=== PATIENT | male | born 1935 | race Caucasian/White ===

== ENCOUNTER 2016-09-02 12:50 | Inpatient (IN) | payer OTHER ==
[~2016-09-02] VITALS: Ht 172.7 cm; Wt 79.2 kg
[~2016-09-02 12:50] MED LIST: ACTOS15 MG PO; ARNUITY ELLIP100 MCG IH; ASPIRIN81 M2 PO; ATIVAN0.5 MG PO; ATORVASTATIN TAB 40M PO; BISACODYL5 MG PO; BUSPAR15 MG PO; CALTRATE 6001 TABLE1 PO; CENTRUM SILVER1 EAC3 PO; DONEPEZIL HCL10 MG PO; ESCITALOPRAM OX10 MG PO; FOLIC ACID1 MG PO; GINKGO BILOBA60 M2 PO; GLUCOVANCE 51 TABLET PO; LEVOFLOXACIN500 MG PO; LIPITOR80 MG PO; LISINOPRIL40 MG; LISINOPRIL40 MG PO; MAG-OXIDE400 MG PO; METFORMIN HCL500 M1 PO; NASACORT AQ16.5 GM BOTH NARES; NOVOLOG PE100 UNITS/ SC; OMEPRAZOLE20 MG PO; PREVACID30 MG PO; PROVENTIL,2.5 MG/0.5 AEROSOL; SEROQUEL12.5 MG PO; SINGULAIR10 MG PO; SUPER B COMPLE150 MG PO; TEGRETOL100 MG PO; TEGRETOL200 MG PO; VITAMIN B-1100 MG PO; VITAMIN D250000 UNIT PO; ZESTRIL40 MG PO
[2016-09-02 13:40] LABS: EOSINOPHIL (%) 0.1 % (0-5); IMMATURE GRANULOCYTE (%) 0.3 % (0.0-0.7); IMMATURE GRANULOCYTE COUNT 0.3 K/uL; LYMPHOCYTE COUNT 1.5 K/uL (1.0-2.8); MCH 32.8 PG (29.0-34.0); MCHC 33.8 G/DL (30.0-36.0); MCV 96.9 FL (86-99); MEAN PLAT.VOLUME 10.1 uM^3 (9.0-12.4); MONOCYTE (%) 7.3 % (3-12); MONOCYTE COUNT 0.8 K/uL (0-0.8); NEUTROPHIL COUNT 8.5 K/uL (1.8-6.4); PLATELET COUNT 133 K/uL (156-360); RBC DIS.WIDTH-CV 13.7 % (11.8-14.6); RBC DIS.WIDTH-SD 46.4 % (39-53); RED BLOOD COUNT 3.51 M/uL (4.00-5.50); WHITE BLOOD COUNT 10.9 K/uL (4.1-10.2)
[2016-09-02 14:02] LABS: INFLUENZA A VIRAL ANTIGEN NEGATIVE; INFLUENZA B VIRAL ANTIGEN NEGATIVE
[2016-09-02 14:05] LABS: CHLORIDE 111 mEq/L (99-109); POTASSIUM 3.9 mEq/L (3.7-5.4); SODIUM 147 mEq/L (136-147)
[2016-09-02 14:07] LABS: GLUCOSE 54 mg/dL (70-99)
[2016-09-02 14:08] LABS: ANION GAP 13 MEQ/L (2-14)
[2016-09-02 14:09] LABS: TOTAL BILIRUBIN 0.2 mg/dL (0.0-1.0)
[2016-09-02 14:11] LABS: ALKALINE PHOSPHATASE 41 IU/L (3-129); GFR ESTIMATE (CALCULATED) 32 mL/min/
[2016-09-02 14:12] LABS: UREA NITROGEN (BUN) 38 mg/dL (9-23)
[2016-09-02 17:18] LABS: ADD MIUA? YES; BILIRUBIN NEGATIVE; BLOOD MODERATE; COLOR YELLOW ((YELLOW)); GLUCOSE (STRIP) NEGATIVE; KETONES NEGATIVE; LEUKOCYTES NEGATIVE; NITRITE NEGATIVE; PROTEIN (STRIP) 100; SPECIFIC GRAVITY 1.024 (1.000-1.030); UROBILINOGEN 0.2 MG/DL (0.2-1.0)
[2016-09-02 17:19] LABS: BACTERIA RARE /HPF; CASTS NONE SEEN /LPF; CRYSTALS NONE SEEN; EPITHELIAL CELLS NONE SEEN /HPF; MUCUS TRACE /LPF; RED BLOOD CELLS 0-5 /HPF (0-5); UCUL ADDED? NO; WHITE BLOOD CELLS 0-5 /HPF (0-5)
[2016-09-02] MEDS ORDERED: FLONASE16 G1 BOTH NARES (18:04)
[2016-09-02] MEDS ORDERED: LO-DOSE ASPIRIN81 M2 PO (18:04)
[2016-09-02] MEDS ORDERED: OMEPRAZOLE20 MG PO (18:04)
[2016-09-02] MEDS ORDERED: CALCIUM 600 +1 EAC2 PO (18:04)
[2016-09-02] MEDS ORDERED: NOVOLOG 10100 UNITS/ SC (18:05)
[2016-09-02] MEDS ORDERED: LEVEMIR FL100 UNIT/1 SC ×2 (18:05→18:06)
[2016-09-02] MEDS ORDERED: FLOMAX0.4 MG PO (18:06)
[2016-09-02] MEDS ORDERED: VITAMIN B-12500 MC5 SL (18:07)
[2016-09-02] MEDS ORDERED: DEPAKOTE SPRIN125 MG PO (18:07)
[2016-09-02] MEDS ORDERED: SEROQUEL12.5 MG PO (18:07)
[2016-09-02] MEDS ORDERED: ROCEPHIN1000 MG IM (18:07)
[2016-09-02] MEDS ORDERED: DULCOLAX10 MG PR (18:08)
[2016-09-02] MEDS ORDERED: PROVENTIL,2.5 MG/3 M IH (18:08)
[2016-09-02] MEDS ORDERED: FLEET ENEMA-AD118 ML PR (18:08)
[2016-09-02] MEDS ORDERED: TYLENOL REGULA325 MG PO (18:09)
[2016-09-02] MEDS ORDERED: PHILLIPS'400 MG/5 M PO (18:09)
[2016-09-02] MEDS ORDERED: ROBITUSSIN100 MG/5 M PO (18:09)
[2016-09-02] MEDS ORDERED: TYLENOL650 MG PR (18:10)
[2016-09-02] MEDS ORDERED: VASELINE454 GM BOTH NARES (18:11)
[2016-09-02 19:00] VITALS: BP 152/65
[2016-09-02 22:59] LABS: POINT-OF-CARE METER ID UU14162513
[2016-09-02 23:46] VITALS: BP 130/72
[2016-09-03 04:12] LABS: POINT-OF-CARE METER ID UU14162513
[2016-09-03 05:05] VITALS: BP 145/70
[2016-09-03 07:28] LABS: HEMATOCRIT 27.9 % (38.0-50.0); MCH 32.6 PG (29.0-34.0); MCHC 34.1 G/DL (30.0-36.0); MCV 95.9 FL (86-99); MEAN PLAT.VOLUME 10.4 uM^3 (9.0-12.4); PLATELET COUNT 120 K/uL (156-360); RBC DIS.WIDTH-SD 49.4 % (39-53); RED BLOOD COUNT 2.91 M/uL (4.00-5.50); WHITE BLOOD COUNT 8.4 K/uL (4.1-10.2)
[2016-09-03 07:52] LABS: ANION GAP 12 MEQ/L (2-14); CHLORIDE 108 MEQ/L (99-109); GFR ESTIMATE (CALCULATED) 38 mL/min/; POTASSIUM 3.6 MEQ/L (3.7-5.4); SAMPLE HEMOLYSIS CHECK 0; SAMPLE ICTERIC CHECK 0; SAMPLE LIPEMIA CHECK 0; SODIUM 140 MEQ/L (136-147); UREA NITROGEN (BUN) 39 mg/dL (9-23)
[2016-09-03 07:59] LABS: GLUCOSE 142 mg/dL (70-99)
[2016-09-03 08:45] VITALS: BP 137/60
[2016-09-03 10:58] LABS: POINT-OF-CARE METER ID UU13113700
[2016-09-03 10:58] LABS: POINT-OF-CARE METER ID UU13113700
[2016-09-03 11:31] LABS: ALKALINE PHOSPHATASE 32 IU/L (3-129); MAGNESIUM 1.5 mg/dl (1.3-2.7); TOTAL BILIRUBIN 0.2 MG/DL (0.0-1.0)
[2016-09-03 11:32] VITALS: BP 135/87
[2016-09-03 15:53] VITALS: BP 112/69
[2016-09-03 17:41] LABS: POINT-OF-CARE METER ID UU14162513
[2016-09-03 20:00] VITALS: BP 124/80
[2016-09-03 20:37] VITALS: BP 141/66
[2016-09-04] VITALS (7 sets, daily range): BP systolic 112–173; BP diastolic 58–76
[2016-09-04 09:02] LABS: POINT-OF-CARE METER ID UU13113700
[2016-09-04 10:39] LABS: HEMATOCRIT 29.2 % (38.0-50.0); MCH 32.1 PG (29.0-34.0); MCHC 33.2 G/DL (30.0-36.0); MCV 96.7 FL (86-99); MEAN PLAT.VOLUME 10.8 uM^3 (9.0-12.4); PLATELET COUNT 117 K/uL (156-360); RBC DIS.WIDTH-CV 14.2 % (11.8-14.6); RBC DIS.WIDTH-SD 50.5 % (39-53); RED BLOOD COUNT 3.02 M/uL (4.00-5.50); WHITE BLOOD COUNT 5.9 K/uL (4.1-10.2)
[2016-09-04 11:13] LABS: ANION GAP 7 MEQ/L (2-14); CHLORIDE 111 MEQ/L (99-109); GFR ESTIMATE (CALCULATED) 44 mL/min/; GLUCOSE 159 mg/dL (70-99); POTASSIUM 3.7 MEQ/L (3.7-5.4); SAMPLE HEMOLYSIS CHECK 0; SAMPLE ICTERIC CHECK 0; SAMPLE LIPEMIA CHECK 0; SODIUM 141 MEQ/L (136-147); UREA NITROGEN (BUN) 28 mg/dL (9-23)
[2016-09-05 00:12] VITALS: BP 145/69
[2016-09-05 04:34] VITALS: BP 178/72
[2016-09-05 07:43] VITALS: BP 184/77
[2016-09-05 16:49] LABS: POINT-OF-CARE METER ID UU13113725
[2016-09-05 18:31] VITALS: BP 182/76
[2016-09-05 23:16] VITALS: BP 169/74
[2016-09-06 09:02] VITALS: BP 186/84
[2016-09-06 10:14] LABS: MCHC 33.8 G/DL (30.0-36.0); MCV 94.8 FL (86-99); RBC DIS.WIDTH-CV 13.7 % (11.8-14.6); RBC DIS.WIDTH-SD 47.4 % (39-53); RED BLOOD COUNT 3.06 M/uL (4.00-5.50); WHITE BLOOD COUNT 5.6 K/uL (4.1-10.2)
[2016-09-06 10:26] LABS: EOSINOPHIL COUNT 0.2 K/uL (0-0.3); IMMATURE GRANULOCYTE (%) 0.4 % (0.0-0.7); LYMPHOCYTE COUNT 1.8 K/uL (1.0-2.8); MONOCYTE (%) 6.6 % (3-12); MONOCYTE COUNT 0.4 K/uL (0-0.8); NEUTROPHIL (%) 57.6 % (45-76); NEUTROPHIL COUNT 3.2 K/uL (1.8-6.4)
[2016-09-06 10:27] LABS: MEAN PLAT.VOLUME 10.7 uM^3 (9.0-12.4)
[2016-09-06 10:30] VITALS: BP 158/72
[2016-09-06 10:30] LABS: PLATELET COUNT 155 K/uL (156-360)
[2016-09-06 10:36] LABS: ANION GAP 9 MEQ/L (2-14); CHLORIDE 112 MEQ/L (99-109); GFR ESTIMATE (CALCULATED) 51 mL/min/; GLUCOSE 120 mg/dL (70-99); POTASSIUM 3.5 MEQ/L (3.7-5.4); SAMPLE HEMOLYSIS CHECK 0; SAMPLE ICTERIC CHECK 0; SAMPLE LIPEMIA CHECK 0; SODIUM 144 MEQ/L (136-147); UREA NITROGEN (BUN) 29 mg/dL (9-23)
[2016-09-06 17:51] VITALS: BP 165/73
[2016-09-06 21:49] LABS: POINT-OF-CARE METER ID UU13113725
[2016-09-07 00:47] VITALS: BP 166/76
[2016-09-07 08:39] VITALS: BP 188/77
[2016-09-07] MEDS ORDERED: LEVEMIR100 UNIT/2 SC (11:13)
[2016-09-07] MEDS ORDERED: AUGMENTIN875 MG PO (11:17)
[2016-09-07 12:00] VITALS: BP 140/72
== END 2016-09-07 14:19 | DRG 177 ==
LOC: EME 12:50 → EDOF 17:30 → 5WEST 17:30 → EDOF 17:30 → 5WEST 18:37 → 5EAST 09-03 12:10 → 5WEST 09-03 12:10 → 5EAST 09-04 10:44
PROVIDERS: Emergency Medicine; Hospitalist; Internal Medicine; Physician Assistant
DX: J69.0 Pneumonitis due to inhalation of food and vomit (principal); G93.40 Encephalopathy, unspecified; J40 Bronchitis, not specified as acute or chronic; R50.9 Fever, unspecified; N18.3 Chronic kidney disease, stage 3 (moderate); I12.9 Hypertensive chronic kidney disease with stage 1 through stage 4 chronic kidney disease, or unspecified chronic kidney disease; D63.8 Anemia in other chronic diseases classified elsewhere; K21.9 Gastro-esophageal reflux disease without esophagitis; Z87.891 Personal history of nicotine dependence; F03.90 Unspecified dementia, unspecified severity, without behavioral disturbance, psychotic disturbance, mood disturbance, and anxiety; E86.0 Dehydration; D69.6 Thrombocytopenia, unspecified; E87.6 Hypokalemia; E11.649 Type 2 diabetes mellitus with hypoglycemia without coma; R41.82 Altered mental status, unspecified; F31.9 Bipolar disorder, unspecified; E11.22 Type 2 diabetes mellitus with diabetic chronic kidney disease
CPT/HCPCS: 71010; 80048; 80053; 80076; 80202; 81003; 82945; 82948; 83605; 83735; 84157; 85025; 85027; 87040; 87070; 87205; 87449; 87502; 87801; 89051; 92610 GN; 99281; 99285; G0378; J0360; J0696; J1644; J1815; J3370; J7030; J7050; S0039

== ENCOUNTER 2017-04-07 16:20 | Inpatient (IN) | payer OTHER ==
[~2017-04-07] VITALS: Ht 172.7 cm; Wt 83.4 kg
[~2017-04-07 16:20] MED LIST changes: +AUGMENTIN875 MG PO; +CALCIUM 600 +1 EAC2 PO; +DEPAKOTE SPRIN125 MG PO; +DULCOLAX10 MG PR; +FLEET ENEMA-AD118 ML PR; +FLOMAX0.4 MG PO; +FLONASE16 G1 BOTH NARES; +LEVEMIR FL100 UNIT/1 SC; +LEVEMIR100 UNIT/2 SC; +LO-DOSE ASPIRIN81 M2 PO; +PHILLIPS'400 MG/5 M PO; +PROVENTIL,2.5 MG/3 M IH; +ROBITUSSIN100 MG/5 M PO; +ROCEPHIN1000 MG IM; +TYLENOL REGULA325 MG PO; +TYLENOL650 MG PR; +VASELINE454 GM BOTH NARES; +VITAMIN B-12500 MC5 SL
[2017-04-07 17:12] LABS: POINT-OF-CARE METER ID UU14100415
[2017-04-07 17:42] LABS: CHLORIDE 105 mEq/L (99-109); POTASSIUM 4.9 mEq/L (3.7-5.4); SODIUM 139 mEq/L (136-147)
[2017-04-07 17:44] LABS: GLUCOSE 204 mg/dL (70-99)
[2017-04-07 17:45] LABS: ANION GAP 13 MEQ/L (2-14)
[2017-04-07 17:46] LABS: TOTAL BILIRUBIN 0.6 mg/dL (0.0-1.0)
[2017-04-07 17:48] LABS: ALKALINE PHOSPHATASE 68 IU/L (3-129); GFR ESTIMATE (CALCULATED) 41 mL/min/
[2017-04-07 17:49] LABS: Estimated Average Glucose 237 mg/dL (70-123); HEMOGLOBIN A1c (GLYCOHEMOGLOB) 9.9 % HGB (Below 5.7); UREA NITROGEN (BUN) 40 mg/dL (9-23)
[2017-04-07 17:52] LABS: TROP-I INTERPRETATION NEGATIVE; TROPONIN-I 0.02 ng/mL (0.0-0.30)
[2017-04-07 18:15] LABS: HDL CHOLESTEROL 37 MG/DL (Desirable>=40); LDL CHOLESTEROL 140 mg/dL (Desirable<100); NON-HDL CHOLESTEROL 162 mg/dL (Desirable<160); TOTAL CHOLESTEROL 199 mg/dL (Desirable<200); TRIGLYCERIDES 112 MG/DL (Normal: <150)
[2017-04-07] MEDS ORDERED: LEVEMIR FL100 UNIT/1 SC (18:40)
[2017-04-07 19:57] LABS: POINT-OF-CARE METER ID UU14100415
[2017-04-07 21:10] LABS: EOSINOPHIL (%) 0.7 % (0-5); EOSINOPHIL COUNT 0.1 K/uL (0-0.3); HEMATOCRIT 34.5 % (38.0-50.0); IMMATURE GRANULOCYTE (%) 0.2 % (0.0-0.7); INSTRUMENT ABS NEUTROPHIL CT 11.7 K/uL; LYMPHOCYTE COUNT 2.6 K/uL (1.0-2.8); MCH 32.7 PG (29.0-34.0); MCHC 34.2 G/DL (30.0-36.0); MCV 95.6 FL (86-99); MEAN PLAT.VOLUME 10.4 uM^3 (9.0-12.4); MONOCYTE COUNT 0.9 K/uL (0-0.8); NEUTROPHIL (%) 76.1 % (45-76); NEUTROPHIL COUNT 11.7 K/uL (1.8-6.4); PLATELET COUNT 205 K/uL (156-360); RBC DIS.WIDTH-CV 12.7 % (11.8-14.6); RBC DIS.WIDTH-SD 44.3 % (39-53); RED BLOOD COUNT 3.61 M/uL (4.00-5.50); WHITE BLOOD COUNT 15.3 K/uL (4.1-10.2)
[2017-04-07 21:11] LABS: CARBON DIOXIDE (BICARBONATE) 29.9 MEQ/L (20-31)
[2017-04-07 22:17] LABS: INTER. NORMALIZED RATIO 1.1; PROTHROMBIN TIME 12.2 SEC (10.2-12.9)
[2017-04-07 22:20] LABS: PTT 27.8 SEC (25-37)
[2017-04-07 23:01] VITALS: BP 148/71
[2017-04-07 23:07] LABS: POINT-OF-CARE METER ID UU14174225
[2017-04-08 00:15] LABS: POINT-OF-CARE METER ID UU14188625
[2017-04-08 05:01] VITALS: BP 151/78
[2017-04-08 07:01] LABS: POINT-OF-CARE METER ID UU14188625
[2017-04-08 07:55] VITALS: BP 137/59
[2017-04-08 09:43] LABS: EOSINOPHIL (%) 3.9 % (0-5); EOSINOPHIL COUNT 0.5 K/uL (0-0.3); HEMATOCRIT 34.6 % (38.0-50.0); IMMATURE GRANULOCYTE (%) 0.2 % (0.0-0.7); INSTRUMENT ABS NEUTROPHIL CT 8.4 K/uL; LYMPHOCYTE COUNT 2.5 K/uL (1.0-2.8); MCH 33.5 PG (29.0-34.0); MCHC 34.1 G/DL (30.0-36.0); MCV 98.3 FL (86-99); MEAN PLAT.VOLUME 10.6 uM^3 (9.0-12.4); MONOCYTE (%) 6.7 % (3-12); MONOCYTE COUNT 0.8 K/uL (0-0.8); NEUTROPHIL (%) 68.7 % (45-76); NEUTROPHIL COUNT 8.4 K/uL (1.8-6.4); PLATELET COUNT 176 K/uL (156-360); RBC DIS.WIDTH-CV 12.9 % (11.8-14.6); RBC DIS.WIDTH-SD 46.1 % (39-53); RED BLOOD COUNT 3.52 M/uL (4.00-5.50); WHITE BLOOD COUNT 12.2 K/uL (4.1-10.2)
[2017-04-08 10:26] LABS: ANION GAP 8 MEQ/L (2-14); CHLORIDE 107 MEQ/L (99-109); GFR ESTIMATE (CALCULATED) 44 mL/min/; POTASSIUM 4.2 MEQ/L (3.7-5.4); SAMPLE HEMOLYSIS CHECK 0; SAMPLE ICTERIC CHECK 0; SAMPLE LIPEMIA CHECK 0; SODIUM 141 MEQ/L (136-147); UREA NITROGEN (BUN) 40 mg/dL (9-23)
[2017-04-08 10:27] LABS: GLUCOSE 101 mg/dL (70-99)
[2017-04-08 12:08] VITALS: BP 167/84
[2017-04-08 12:12] LABS: POINT-OF-CARE METER ID UU13113717
[2017-04-08 16:16] VITALS: BP 142/72
[2017-04-08 18:13] LABS: POINT-OF-CARE METER ID UU13113717
[2017-04-08 21:03] VITALS: BP 155/72
[2017-04-08 23:51] LABS: POINT-OF-CARE METER ID UU14188625
[2017-04-09 00:43] VITALS: BP 152/75
[2017-04-09 04:35] VITALS: BP 162/68
[2017-04-09 05:45] LABS: POINT-OF-CARE METER ID UU14188625
[2017-04-09 06:45] LABS: EOSINOPHIL (%) 3.8 % (0-5); EOSINOPHIL COUNT 0.3 K/uL (0-0.3); HEMATOCRIT 30.7 % (38.0-50.0); IMMATURE GRANULOCYTE (%) 0.2 % (0.0-0.7); INSTRUMENT ABS NEUTROPHIL CT 5.2 K/uL; LYMPHOCYTE COUNT 1.9 K/uL (1.0-2.8); MCH 33.2 PG (29.0-34.0); MCHC 34.2 G/DL (30.0-36.0); MCV 97.2 FL (86-99); MEAN PLAT.VOLUME 10.7 uM^3 (9.0-12.4); MONOCYTE (%) 8.7 % (3-12); MONOCYTE COUNT 0.7 K/uL (0-0.8); NEUTROPHIL COUNT 5.2 K/uL (1.8-6.4); PLATELET COUNT 172 K/uL (156-360); RBC DIS.WIDTH-CV 12.7 % (11.8-14.6); RBC DIS.WIDTH-SD 45.5 % (39-53); RED BLOOD COUNT 3.16 M/uL (4.00-5.50); WHITE BLOOD COUNT 8.1 K/uL (4.1-10.2)
[2017-04-09 07:58] VITALS: BP 147/74
[2017-04-09 07:58] LABS: ANION GAP 8 MEQ/L (2-14); CHLORIDE 108 MEQ/L (99-109); GFR ESTIMATE (CALCULATED) 48 mL/min/; GLUCOSE 117 mg/dL (70-99); POTASSIUM 3.9 MEQ/L (3.7-5.4); SAMPLE HEMOLYSIS CHECK 0; SAMPLE ICTERIC CHECK 0; SAMPLE LIPEMIA CHECK 0; SODIUM 138 MEQ/L (136-147); UREA NITROGEN (BUN) 31 mg/dL (9-23)
[2017-04-09 11:52] LABS: POINT-OF-CARE METER ID UU13113717
[2017-04-09 11:54] VITALS: BP 1368/64
[2017-04-09 16:00] VITALS: BP 116/68
[2017-04-09 20:05] VITALS: BP 168/77
[2017-04-10 00:24] VITALS: BP 140/85
[2017-04-10 04:13] VITALS: BP 152/75
[2017-04-10 05:32] LABS: POINT-OF-CARE METER ID UU13113717
[2017-04-10 06:32] LABS: ANION GAP 6 MEQ/L (2-14); CHLORIDE 110 MEQ/L (99-109); GFR ESTIMATE (CALCULATED) 48 mL/min/; GLUCOSE 151 mg/dL (70-99); POTASSIUM 3.8 MEQ/L (3.7-5.4); SAMPLE HEMOLYSIS CHECK 0; SAMPLE ICTERIC CHECK 0; SAMPLE LIPEMIA CHECK 0; SODIUM 138 MEQ/L (136-147); UREA NITROGEN (BUN) 22 mg/dL (9-23)
[2017-04-10 07:31] VITALS: BP 152/84
[2017-04-10 11:14] VITALS: BP 169/82
[2017-04-10 15:22] VITALS: BP 176/84
[2017-04-10 19:53] VITALS: BP 178/85
[2017-04-11] VITALS (7 sets, daily range): BP systolic 118–174; BP diastolic 66–89
[2017-04-11 00:47] LABS: POINT-OF-CARE METER ID UU13113717; POINT-OF-CARE USER ID STWHLR41
[2017-04-11 06:20] LABS: POINT-OF-CARE METER ID UU14174225
[2017-04-11 22:30] LABS: POINT-OF-CARE METER ID UU13113717
[2017-04-12 04:24] VITALS: BP 188/93
[2017-04-12 05:04] VITALS: BP 175/69
[2017-04-12 06:48] LABS: HEMATOCRIT 31.5 % (38.0-50.0); MCH 32.6 PG (29.0-34.0); MCHC 34.3 G/DL (30.0-36.0); MCV 95.2 FL (86-99); MEAN PLAT.VOLUME 10.4 uM^3 (9.0-12.4); PLATELET COUNT 185 K/uL (156-360); RBC DIS.WIDTH-CV 12.8 % (11.8-14.6); RBC DIS.WIDTH-SD 44.5 % (39-53); RED BLOOD COUNT 3.31 M/uL (4.00-5.50); WHITE BLOOD COUNT 7.4 K/uL (4.1-10.2)
[2017-04-12 08:06] VITALS: BP 190/86
[2017-04-12 11:42] VITALS: BP 127/99
[2017-04-12 15:30] VITALS: BP 155/67
[2017-04-12 20:21] VITALS: BP 172/86
[2017-04-13] VITALS (7 sets, daily range): BP systolic 142–196; BP diastolic 71–91
[2017-04-13 01:03] LABS: POINT-OF-CARE METER ID UU14174225
[2017-04-13 18:40] LABS: POINT-OF-CARE METER ID UU14188625
[2017-04-14 03:55] VITALS: BP 164/82
[2017-04-14 07:08] LABS: HEMATOCRIT 29.1 % (38.0-50.0); MCH 33.6 PG (29.0-34.0); MCHC 35.4 G/DL (30.0-36.0); MCV 94.8 FL (86-99); MEAN PLAT.VOLUME 10.1 uM^3 (9.0-12.4); PLATELET COUNT 190 K/uL (156-360); RBC DIS.WIDTH-CV 13.2 % (11.8-14.6); RED BLOOD COUNT 3.07 M/uL (4.00-5.50); WHITE BLOOD COUNT 7.5 K/uL (4.1-10.2)
[2017-04-14 07:09] VITALS: BP 170/69
[2017-04-14 12:26] VITALS: BP 163/66
[2017-04-14 16:00] VITALS: BP 143/88
[2017-04-14] MEDS ORDERED: ATIVAN INTE2 MG/1 ML PO (16:30)
[2017-04-14] MEDS ORDERED: LEVSIN-SL0.125 MG SL (16:30)
[2017-04-14] MEDS ORDERED: MORPHINE CON20 MG/M1 SL (16:30)
[2017-04-14 17:14] LABS: POINT-OF-CARE METER ID UU13113717
== END 2017-04-14 18:19 | DRG 64 ==
LOC: EME 16:20 → EDOF 20:07 → 5SOUTH 20:07 → ENRESERV 20:10 → 5SOUTH 22:39
PROVIDERS: Emergency Medicine; Hospitalist; Physician Assistant Medical; Student in an Organized Health Care Education/Training Program
DX: I63.9 Cerebral infarction, unspecified (principal); R65.10 Systemic inflammatory response syndrome (SIRS) of non-infectious origin without acute organ dysfunction; N18.3 Chronic kidney disease, stage 3 (moderate); E11.22 Type 2 diabetes mellitus with diabetic chronic kidney disease; I82.443 Acute embolism and thrombosis of tibial vein, bilateral; F03.90 Unspecified dementia, unspecified severity, without behavioral disturbance, psychotic disturbance, mood disturbance, and anxiety; E11.65 Type 2 diabetes mellitus with hyperglycemia; G93.89 Other specified disorders of brain; E78.5 Hyperlipidemia, unspecified; F31.9 Bipolar disorder, unspecified; R47.02 Dysphasia; I12.9 Hypertensive chronic kidney disease with stage 1 through stage 4 chronic kidney disease, or unspecified chronic kidney disease; K21.9 Gastro-esophageal reflux disease without esophagitis; L03.116 Cellulitis of left lower limb; I25.10 Atherosclerotic heart disease of native coronary artery without angina pectoris; G03.9 Meningitis, unspecified; R59.0 Localized enlarged lymph nodes; I73.9 Peripheral vascular disease, unspecified; G89.29 Other chronic pain; Z85.828 Personal history of other malignant neoplasm of skin; Z79.4 Long term (current) use of insulin; Z79.82 Long term (current) use of aspirin; Z88.0 Allergy status to penicillin; Z78.1 Physical restraint status; Z86.73 Personal history of transient ischemic attack (TIA), and cerebral infarction without residual deficits; Z86.14 Personal history of Methicillin resistant Staphylococcus aureus infection; Z79.899 Other long term (current) drug therapy; Z82.49 Family history of ischemic heart disease and other diseases of the circulatory system
CPT/HCPCS: 70450; 70551; 71010; 74230; 80048; 80053; 80061; 81003; 82803; 82948; 83036; 83605; 84484; 85025; 85025 91; 85027; 85379; 85610; 85730; 87040; 92526 GN; 92610 GN; 92611 GN; 93005; 93306; 93880; 93971; 99202; 99281; 99285; J0360; J0696; J1630; J1815; J2060; J3370; J7030; J7042; J7050; S0028

== ENCOUNTER → 2017-04-28 | Outpatient (CLI) | payer OTHER ==
[~2017-04-28] MED LIST changes: +ATIVAN INTE2 MG/1 ML PO; +LEVSIN-SL0.125 MG SL; +MORPHINE CON20 MG/M1 SL
== END | disposition home or self-care (01) ==
LOC: RAD 10:00
DX: R13.11 Dysphagia, oral phase (principal); R13.13 Dysphagia, pharyngeal phase
CPT/HCPCS: 74230; 92611 GN; G8996 GN CK; G8997 GN CK; G8998 GN CK

== ENCOUNTER 2017-05-10 12:43 | Emergency (ER) | payer OTHER, MEDICARE ==
[~2017-05-10] VITALS: Ht 172.7 cm; Wt 78.2 kg
[2017-05-10 17:15] VITALS: BP 162/89
== END 2017-05-10 17:16 ==
LOC: EME 12:43
DX: S00.81XA Abrasion of other part of head, initial encounter (principal); S51.812A Laceration without foreign body of left forearm, initial encounter; W05.0XXA Fall from non-moving wheelchair, initial encounter; Y92.129 Unspecified place in nursing home as the place of occurrence of the external cause; I12.9 Hypertensive chronic kidney disease with stage 1 through stage 4 chronic kidney disease, or unspecified chronic kidney disease; N18.9 Chronic kidney disease, unspecified; E11.22 Type 2 diabetes mellitus with diabetic chronic kidney disease; F03.90 Unspecified dementia, unspecified severity, without behavioral disturbance, psychotic disturbance, mood disturbance, and anxiety; K21.9 Gastro-esophageal reflux disease without esophagitis; Z86.73 Personal history of transient ischemic attack (TIA), and cerebral infarction without residual deficits; F32.9 Major depressive disorder, single episode, unspecified; Z87.891 Personal history of nicotine dependence; Z88.0 Allergy status to penicillin
CPT/HCPCS: 70450; 99281; 99285

== ENCOUNTER 2017-07-28 17:00 | Inpatient (IN) | payer OTHER, MEDICARE ==
[~2017-07-28] VITALS: Ht 177.8 cm; Wt 71.7 kg
[2017-07-28 19:00] LABS: HEMOGLOBIN 13.4 G/DL (12.5-16.6); MCH 33.6 PG (29.0-34.0); MCHC 32.7 G/DL (30.0-36.0); RBC DIS.WIDTH-CV 13.2 % (11.8-14.6); RBC DIS.WIDTH-SD 50.6 % (39-53); RED BLOOD COUNT 3.99 M/uL (4.00-5.50); WHITE BLOOD COUNT 10.9 K/uL (4.1-10.2)
[2017-07-28 19:06] LABS: MCV 102.8 FL (86-99); PLATELET COUNT 306 K/uL (156-360)
[2017-07-28 19:09] LABS: CHLORIDE 120 mEq/L (99-109); POTASSIUM 4.1 mEq/L (3.7-5.4); SODIUM 154 mEq/L (136-147)
[2017-07-28 19:11] LABS: GLUCOSE 345 mg/dL (70-99)
[2017-07-28 19:15] LABS: GFR ESTIMATE (CALCULATED) 34 mL/min/ (58.99-99999)
[2017-07-28 19:16] LABS: UREA NITROGEN (BUN) 51 mg/dL (9-23)
[2017-07-28 19:21] LABS: APPEARANCE SL.HAZY ((CLEAR)); BILIRUBIN NEGATIVE; BLOOD SMALL; COLOR YELLOW ((YELLOW)); GLUCOSE (STRIP) >=500; KETONES NEGATIVE; LEUKOCYTES TRACE; NITRITE NEGATIVE; PROTEIN (STRIP) 30
[2017-07-28 19:23] LABS: TROP-I INTERPRETATION NEGATIVE; TROPONIN-I 0.03 ng/mL (0.0-0.30)
[2017-07-28 19:39] LABS: BACTERIA NONE SEEN /HPF; EPITHELIAL CELLS RARE /HPF; MUCUS TRACE /LPF; RED BLOOD CELLS 0-5 /HPF (0-5); UCUL ADDED? YES
[2017-07-28] MEDS ORDERED: PRILOSEC20 MG PO (21:02)
[2017-07-28] MEDS ORDERED: DEPAKOTE125 MG PO (21:02)
[2017-07-28] MEDS ORDERED: CHILDREN'S ASPI81 M1 PO (21:02)
[2017-07-28] MEDS ORDERED: PRAVACHOL10 MG PO (21:02)
[2017-07-28] MEDS ORDERED: LANTUS 3 M100 UNITS1 SC (21:03)
[2017-07-28] MEDS ORDERED: NOVOLOG PE100 UNITS/ SC (21:03)
[2017-07-28] MEDS ORDERED: NITROSTAT0.4 MG SL (21:04)
[2017-07-28] MEDS ORDERED: TYLENOL650 MG PR (21:05)
[2017-07-28 23:55] VITALS: BP 152/65
[2017-07-29 01:07] LABS: CHLORIDE 124 mEq/L (99-109); POTASSIUM 4.4 mEq/L (3.7-5.4); SODIUM 157 mEq/L (136-147)
[2017-07-29 01:09] LABS: GLUCOSE 263 mg/dL (70-99)
[2017-07-29 01:13] LABS: CREATININE 1.6 mg/dL (0.6-1.3); GFR ESTIMATE (CALCULATED) 44 mL/min/ (58.99-99999)
[2017-07-29 01:14] LABS: UREA NITROGEN (BUN) 48 mg/dL (9-23)
[2017-07-29 08:00] VITALS: BP 151/66
[2017-07-29 10:08] LABS: BASOPHIL (%) 0.3 % (0-1); EOSINOPHIL (%) 4.6 % (0-5); EOSINOPHIL COUNT 0.4 K/uL (0-0.3); HEMATOCRIT 35.5 % (38.0-50.0); HEMOGLOBIN 11.6 G/DL (12.5-16.6); IMMATURE GRANULOCYTE (%) 0.3 % (0.0-0.7); LYMPHOCYTE (%) 23.6 % (15-42); LYMPHOCYTE COUNT 2.1 K/uL (1.0-2.8); MCH 33.7 PG (29.0-34.0); MCHC 32.7 G/DL (30.0-36.0); MCV 103.2 FL (86-99); MONOCYTE (%) 6.3 % (3-12); MONOCYTE COUNT 0.6 K/uL (0-0.8); NEUTROPHIL (%) 64.9 % (45-76); NEUTROPHIL COUNT 5.7 K/uL (1.8-6.4); PLATELET COUNT 225 K/uL (156-360); RBC DIS.WIDTH-CV 13.2 % (11.8-14.6); RBC DIS.WIDTH-SD 50.1 % (39-53); RED BLOOD COUNT 3.44 M/uL (4.00-5.50); WHITE BLOOD COUNT 8.8 K/uL (4.1-10.2)
[2017-07-29 10:37] LABS: CHLORIDE 126 MEQ/L (99-109); POTASSIUM 4.1 MEQ/L (3.7-5.4); SODIUM 156 MEQ/L (136-147)
[2017-07-29 10:42] LABS: CREATININE 1.4 MG/DL (0.6-1.3); GFR ESTIMATE (CALCULATED) 51 mL/min/ (58.99-99999); GLUCOSE 190 mg/dL (70-99); UREA NITROGEN (BUN) 44 mg/dL (9-23)
[2017-07-29 16:46] VITALS: BP 156/67
[2017-07-29 21:40] VITALS: BP 183/71
[2017-07-29 23:36] VITALS: BP 139/62
[2017-07-30 06:07] LABS: BASOPHIL (%) 0.4 % (0-1); EOSINOPHIL (%) 4.6 % (0-5); EOSINOPHIL COUNT 0.4 K/uL (0-0.3); HEMATOCRIT 33.5 % (38.0-50.0); HEMOGLOBIN 11.1 G/DL (12.5-16.6); IMMATURE GRANULOCYTE (%) 0.5 % (0.0-0.7); LYMPHOCYTE (%) 22.1 % (15-42); LYMPHOCYTE COUNT 1.7 K/uL (1.0-2.8); MCHC 33.1 G/DL (30.0-36.0); MCV 99.7 FL (86-99); MONOCYTE COUNT 0.6 K/uL (0-0.8); NEUTROPHIL (%) 65.4 % (45-76); NEUTROPHIL COUNT 5.1 K/uL (1.8-6.4); PLATELET COUNT 213 K/uL (156-360); RBC DIS.WIDTH-SD 46.8 % (39-53); RED BLOOD COUNT 3.36 M/uL (4.00-5.50); WHITE BLOOD COUNT 7.8 K/uL (4.1-10.2)
[2017-07-30 06:26] LABS: CHLORIDE 122 MEQ/L (99-109); CREATININE 1.4 MG/DL (0.6-1.3); GFR ESTIMATE (CALCULATED) 51 mL/min/ (58.99-99999); GLUCOSE 131 mg/dL (70-99); POTASSIUM 3.5 MEQ/L (3.7-5.4); SODIUM 152 MEQ/L (136-147); UREA NITROGEN (BUN) 30 mg/dL (9-23)
[2017-07-30 07:28] VITALS: BP 136/61
[2017-07-30 16:01] VITALS: BP 164/72
[2017-07-31 00:10] VITALS: BP 151/65
[2017-07-31 04:36] LABS: BASOPHIL (%) 0.3 % (0-1); EOSINOPHIL (%) 5.3 % (0-5); EOSINOPHIL COUNT 0.4 K/uL (0-0.3); HEMATOCRIT 34.6 % (38.0-50.0); HEMOGLOBIN 11.6 G/DL (12.5-16.6); IMMATURE GRANULOCYTE (%) 0.4 % (0.0-0.7); LYMPHOCYTE (%) 27.5 % (15-42); LYMPHOCYTE COUNT 1.9 K/uL (1.0-2.8); MCHC 33.5 G/DL (30.0-36.0); MCV 98.6 FL (86-99); MONOCYTE (%) 6.6 % (3-12); MONOCYTE COUNT 0.5 K/uL (0-0.8); NEUTROPHIL (%) 59.9 % (45-76); NEUTROPHIL COUNT 4.1 K/uL (1.8-6.4); PLATELET COUNT 209 K/uL (156-360); RBC DIS.WIDTH-CV 13.1 % (11.8-14.6); RBC DIS.WIDTH-SD 46.6 % (39-53); RED BLOOD COUNT 3.51 M/uL (4.00-5.50); WHITE BLOOD COUNT 6.8 K/uL (4.1-10.2)
[2017-07-31 04:55] LABS: CHLORIDE 121 mEq/L (99-109); POTASSIUM 3.9 mEq/L (3.7-5.4); SODIUM 147 mEq/L (136-147)
[2017-07-31 04:57] LABS: GLUCOSE 157 mg/dL (70-99)
[2017-07-31 05:01] LABS: CREATININE 1.3 mg/dL (0.6-1.3); GFR ESTIMATE (CALCULATED) 56 mL/min/ (58.99-99999)
[2017-07-31 05:02] LABS: UREA NITROGEN (BUN) 27 mg/dL (9-23)
[2017-07-31 08:35] VITALS: BP 127/72
[2017-07-31 09:10] LABS: VANCOMYCIN, TROUGH 21.5 MCG/ML (10-20)
[2017-08-01 00:02] VITALS: BP 162/67
[2017-08-01 06:54] LABS: BASOPHIL (%) 0.3 % (0-1); EOSINOPHIL (%) 3.8 % (0-5); EOSINOPHIL COUNT 0.3 K/uL (0-0.3); HEMATOCRIT 32.9 % (38.0-50.0); HEMOGLOBIN 11.1 G/DL (12.5-16.6); IMMATURE GRANULOCYTE (%) 0.4 % (0.0-0.7); LYMPHOCYTE (%) 28.1 % (15-42); LYMPHOCYTE COUNT 2.1 K/uL (1.0-2.8); MCHC 33.7 G/DL (30.0-36.0); MCV 97.9 FL (86-99); MONOCYTE COUNT 0.4 K/uL (0-0.8); NEUTROPHIL (%) 61.4 % (45-76); NEUTROPHIL COUNT 4.5 K/uL (1.8-6.4); PLATELET COUNT 198 K/uL (156-360); RBC DIS.WIDTH-CV 12.9 % (11.8-14.6); RBC DIS.WIDTH-SD 45.8 % (39-53); RED BLOOD COUNT 3.36 M/uL (4.00-5.50); WHITE BLOOD COUNT 7.4 K/uL (4.1-10.2)
[2017-08-01 07:02] LABS: CHLORIDE 114 MEQ/L (99-109); CREATININE 1.3 MG/DL (0.6-1.3); GFR ESTIMATE (CALCULATED) 56 mL/min/ (58.99-99999); GLUCOSE 203 mg/dL (70-99); POTASSIUM 3.5 MEQ/L (3.7-5.4); SODIUM 147 MEQ/L (136-147); UREA NITROGEN (BUN) 22 mg/dL (9-23)
[2017-08-01 07:24] VITALS: BP 153/67
[2017-08-01 15:20] VITALS: BP 134/78
[2017-08-01 23:25] VITALS: BP 138/76
[2017-08-02 06:44] LABS: BASOPHIL (%) 0.4 % (0-1); EOSINOPHIL (%) 3.8 % (0-5); EOSINOPHIL COUNT 0.3 K/uL (0-0.3); HEMATOCRIT 34.8 % (38.0-50.0); HEMOGLOBIN 11.7 G/DL (12.5-16.6); IMMATURE GRANULOCYTE (%) 0.4 % (0.0-0.7); LYMPHOCYTE (%) 30.2 % (15-42); LYMPHOCYTE COUNT 2.5 K/uL (1.0-2.8); MCHC 33.6 G/DL (30.0-36.0); MONOCYTE (%) 5.8 % (3-12); MONOCYTE COUNT 0.5 K/uL (0-0.8); NEUTROPHIL (%) 59.4 % (45-76); NEUTROPHIL COUNT 4.9 K/uL (1.8-6.4); PLATELET COUNT 172 K/uL (156-360); RBC DIS.WIDTH-CV 12.9 % (11.8-14.6); RBC DIS.WIDTH-SD 46.3 % (39-53); RED BLOOD COUNT 3.55 M/uL (4.00-5.50); WHITE BLOOD COUNT 8.2 K/uL (4.1-10.2)
[2017-08-02 07:07] LABS: CHLORIDE 112 MEQ/L (99-109); CREATININE 1.4 MG/DL (0.6-1.3); GFR ESTIMATE (CALCULATED) 51 mL/min/ (58.99-99999); GLUCOSE 203 mg/dL (70-99); POTASSIUM 3.9 MEQ/L (3.7-5.4); SODIUM 141 MEQ/L (136-147); UREA NITROGEN (BUN) 17 mg/dL (9-23)
[2017-08-02 07:59] VITALS: BP 190/95
[2017-08-02 09:50] VITALS: BP 153/79
[2017-08-02 16:00] VITALS: BP 162/66
[2017-08-02 23:12] VITALS: BP 134/68
[2017-08-03 06:09] VITALS: BP 119/61
[2017-08-03 07:03] LABS: BASOPHIL (%) 0.3 % (0-1); EOSINOPHIL (%) 4.3 % (0-5); EOSINOPHIL COUNT 0.4 K/uL (0-0.3); HEMATOCRIT 31.2 % (38.0-50.0); HEMOGLOBIN 10.7 G/DL (12.5-16.6); IMMATURE GRANULOCYTE (%) 0.6 % (0.0-0.7); LYMPHOCYTE (%) 32.4 % (15-42); LYMPHOCYTE COUNT 2.9 K/uL (1.0-2.8); MCH 33.5 PG (29.0-34.0); MCHC 34.3 G/DL (30.0-36.0); MCV 97.8 FL (86-99); MONOCYTE (%) 6.5 % (3-12); MONOCYTE COUNT 0.6 K/uL (0-0.8); NEUTROPHIL (%) 55.9 % (45-76); PLATELET COUNT 197 K/uL (156-360); RBC DIS.WIDTH-CV 13.2 % (11.8-14.6); RBC DIS.WIDTH-SD 46.1 % (39-53); RED BLOOD COUNT 3.19 M/uL (4.00-5.50); WHITE BLOOD COUNT 8.9 K/uL (4.1-10.2)
[2017-08-03 07:14] LABS: CHLORIDE 112 MEQ/L (99-109); CREATININE 1.5 MG/DL (0.6-1.3); GFR ESTIMATE (CALCULATED) 48 mL/min/ (58.99-99999); GLUCOSE 133 mg/dL (70-99); POTASSIUM 3.8 MEQ/L (3.7-5.4); SODIUM 142 MEQ/L (136-147); UREA NITROGEN (BUN) 16 mg/dL (9-23)
[2017-08-03 07:32] VITALS: BP 130/65
== END 2017-08-03 17:25 | DRG 682 ==
LOC: EME 17:00 → 5SOUTH 21:56 → EDOF 21:56 → ENRESERV 21:59 → EDOF 22:30 → ENRESERV 22:58 → 5SOUTH 23:57
PROVIDERS: Emergency Medicine; Hospitalist; Internal Medicine; Internal Medicine Nephrology
DX: N17.9 Acute kidney failure, unspecified (principal); J18.9 Pneumonia, unspecified organism; Y95 Nosocomial condition; N39.0 Urinary tract infection, site not specified; B96.4 Proteus (mirabilis) (morganii) as the cause of diseases classified elsewhere; G93.40 Encephalopathy, unspecified; E86.0 Dehydration; E87.0 Hyperosmolality and hypernatremia; E87.6 Hypokalemia; E11.65 Type 2 diabetes mellitus with hyperglycemia; E11.22 Type 2 diabetes mellitus with diabetic chronic kidney disease; I12.9 Hypertensive chronic kidney disease with stage 1 through stage 4 chronic kidney disease, or unspecified chronic kidney disease; N18.3 Chronic kidney disease, stage 3 (moderate); F03.90 Unspecified dementia, unspecified severity, without behavioral disturbance, psychotic disturbance, mood disturbance, and anxiety; I25.10 Atherosclerotic heart disease of native coronary artery without angina pectoris; F32.9 Major depressive disorder, single episode, unspecified; R13.10 Dysphagia, unspecified; K21.9 Gastro-esophageal reflux disease without esophagitis; L89.159 Pressure ulcer of sacral region, unspecified stage; Z16.24 Resistance to multiple antibiotics; D64.9 Anemia, unspecified; Z66 Do not resuscitate; Z79.4 Long term (current) use of insulin; Z85.828 Personal history of other malignant neoplasm of skin; Z87.891 Personal history of nicotine dependence; Z88.0 Allergy status to penicillin; Z88.5 Allergy status to narcotic agent
CPT/HCPCS: 71045; 76770; 80048; 80048 91; 80202; 81003; 82948; 83935; 84300; 84484; 85025; 85027; 87077; 87086; 87186; 92526 GN; 92610 GN; 93005; 99281; 99285; C1755; J0360; J0692; J1644; J1956; J2543; J3370; J7030; J7050; J7070; S0028; S0073